=== PATIENT | male | born 1950 | race Caucasian/White ===

== ENCOUNTER 2022-11-09 11:04 | Inpatient (IN) | payer MEDICARE, MEDICAID ==
[~2022-11-09] VITALS: Ht 167.6 cm; Wt 84.3 kg
[~2022-11-09 11:04] MED LIST: AMLO5TAB66 PO; ASPIRIN 81 MG CHEWABLE TABLET ONE; ATOR40TA71 PO; DIAZEPAM 5 MG TABLET ONE; DiphenhydrAMINE HCL 50 MG CAPSULE ONE; FAMO40TA7 PO; LISI10TA24 PO; MEMA5TAB42 PO; METF-1211 PO; SODIUM CHLORIDE 0.9% 1,000 ML IV ONE; SODIUM CHLORIDE 0.9% 1,000 ML ONE
[2022-11-09 11:59] LABS: PROTHROMBIN TIME 11.1 SEC (9.4-11.6)
[2022-11-09] MEDS ORDERED: SODIUM CHLORIDE 0.9% 1,000 ML IV ONE (12:00)
[2022-11-09] MEDS ORDERED: DiphenhydrAMINE HCL 50 MG CAPSULE PO ONE (12:00)
[2022-11-09] MEDS ORDERED: DIAZEPAM 5 MG TABLET PO ONE (12:00)
[2022-11-09] MEDS ORDERED: ASPIRIN 81 MG CHEWABLE TABLET PO ONE ×2 (12:00→15:45)
[2022-11-09 12:01] LABS: GLUCOMETER DEV NAME(LOC) SDS.; GLUCOSE,POINT OF CARE 98 MG/DL (70-110)
[2022-11-09] MEDS ORDERED: LIDOCAINE/PF 1% 30 ML VIAL ONE (14:03)
[2022-11-09] MEDS ORDERED: SODIUM BICARBONATE 50 MEQ/50 ML VIAL ONE (14:03)
[2022-11-09] MEDS ORDERED: IOHEXOL 300 MG/ML 100 ML VIAL ONE ×3 (14:03→15:28)
[2022-11-09 14:04] VITALS: BP 171/79
[2022-11-09] MEDS ORDERED: HEPARIN SODIUM 1000 UNITS/NS 1,000 ML ONE (14:04)
[2022-11-09] MEDS ORDERED: FentaNYL CITRATE PF 100 MCG/2 ML VIAL ONE (14:11)
[2022-11-09] MEDS ORDERED: MIDAZOLAM HCL 2 MG/2 ML VIAL ONE (14:12)
[2022-11-09] MEDS ORDERED: HEPARIN SODIUM 1000 UNITS/NS 0 ML ONE (14:40)
[2022-11-09] MEDS ORDERED: FentaNYL CITRATE PF 100 MCG/2 ML VIAL IVP ONE (14:45)
[2022-11-09] MEDS ORDERED: SODIUM CHLORIDE 0.9% 500 ML IV ONE (14:45)
[2022-11-09] MEDS ORDERED: LIDOCAINE 1% 30 ML/SOD BICARB 8.4% 4 ML SQ ONE (14:45)
[2022-11-09] MEDS ORDERED: HEPARIN SODIUM 1000 UNITS/NS 1,000 ML IARTER ONE (14:45)
[2022-11-09] MEDS ORDERED: MIDAZOLAM HCL 2 MG/2 ML VIAL IVP ONE (14:45)
[2022-11-09] MEDS ORDERED: IOHEXOL 300 MG/ML 100 ML VIAL ICOR ONE ×2 (14:45→15:45)
[2022-11-09] MEDS ORDERED: HEPARIN SODIUM,PORCINE 1,000 UNITS/ML 10 ML VIAL ONE (15:01)
[2022-11-09] MEDS ORDERED: HEPARIN SODIUM,PORCINE 1,000 UNITS/ML 10 ML VIAL IARTER ONE (15:15)
[2022-11-09] MEDS ORDERED: TICAGRELOR 90 MG TABLET PO ONE (15:45)
[2022-11-09 15:46] VITALS: BP 171/79
[2022-11-09] MEDS ORDERED: ONDANSETRON HCL 4 MG/2 ML VIAL IVP PRN (16:15)
[2022-11-09] MEDS ORDERED: INSULIN LISPRO 100 UNITS/ML SQ PRN (16:15)
[2022-11-09] MEDS ORDERED: OxyCODONE HCL/ACETAMINOPHEN 5-325 MG TABLET PO PRN (16:15)
[2022-11-09] MEDS ORDERED: DEXTROSE 50%-WATER 25 GM/50 ML SYRINGE IVP PRN (16:15)
[2022-11-09] MEDS ORDERED: ACETAMINOPHEN 325 MG TABLET PO PRN (16:15)
[2022-11-09 19:45] VITALS: BP 131/70
[2022-11-09 20:04] VITALS: BP 131/70
[2022-11-09] MEDS ORDERED: TICAGRELOR 90 MG TABLET PO SCH (21:00)
[2022-11-09] MEDS ORDERED: ATORVASTATIN CALCIUM 40 MG TABLET PO SCH (21:00)
[2022-11-09] MEDS: CARVEDILOL 6.25 MG TABLET PO SCH (22:21)
[2022-11-09] MEDS: DOCUSATE SODIUM 100 MG CAPSULE PO SCH (22:21)
[2022-11-10 00:02] VITALS: BP 125/69
[2022-11-10 04:55] VITALS: BP 124/70
[2022-11-10 06:05] LABS: ALANINE AMINOTRANSFERASE 26 U/L (12-78); ALBUMIN 3.4 g/dL (3.4-5.0); ALKALINE PHOSPHATASE 78 U/L (46-116); ANION GAP 6 mmol/L (8-16); ASPARTATE AMINOTRANSFERASE 24 U/L (15-37); BILIRUBIN,TOTAL 0.9 mg/dL (0.1-1.0); CARBON DIOXIDE 28 mmol/L (22-29); CHLORIDE 103 mmol/L (98-107); CREATININE 0.76 mg/dL (0.60-1.30); GLUCOSE,RANDOM 115 mg/dL (70-110); POTASSIUM 4.1 mmol/L (3.5-5.1); SODIUM SERUM 137 mmol/L (136-145); TOTAL PROTEIN, SERUM 7.3 g/dL (6.4-8.2); UREA NITROGEN, BLOOD 14 mg/dL (7-18)
[2022-11-10 06:08] LABS: GLOMERULAR FILTR. RATE CALC > 60 mL/min (>60)
[2022-11-10 06:49] LABS: BASOPHILS % (AUTO) 0.4 % (0.0-2.0); HEMATOCRIT 36.9 % (41-53); HEMOGLOBIN 12.9 g/dL (13.5-17.5); LYMPHOCYTES # (AUTO) 1.6 K/uL (1.0-4.8); LYMPHOCYTES % (AUTO) 23.4 % (22.0-44.0); MEAN CORPUSCULAR HEMOGLOBIN 32.8 pg (26.0-34.0); MEAN CORPUSCULAR HGB CONC 34.9 G/dL (31.0-37.0); MEAN CORPUSCULAR VOLUME 94 fL (80-100); MONOCYTES # (AUTO) 0.4 K/uL (0.1-1.0); MONOCYTES % (AUTO) 6.3 % (2.0-9.0); NEUTROPHILS # (AUTO) 4.5 K/uL (1.8-7.7); NEUTROPHILS % (AUTO) 66.9 % (40.0-70.0); PLATELET COUNT (AUTO) 215 K/uL (150-450); RED BLOOD CELL COUNT(AUTO) 3.94 MIL/uL (4.50-5.90); RED CELL DISTRIBUTION WIDTH 13.8 % (11.5-14.5)
[2022-11-10 07:38] VITALS: BP 135/70
[2022-11-10 08:22] LABS: GLUCOMETER DEV NAME(LOC) 5S.1B; GLUCOSE,POINT OF CARE 105 MG/DL (70-110)
[2022-11-10] MEDS ORDERED: FAMOTIDINE 20 MG TABLET PO SCH (09:00)
[2022-11-10] MEDS ORDERED: ASPIRIN 81 MG CHEWABLE TABLET PO SCH (09:00)
[2022-11-10] MEDS ORDERED: TICAGRELOR 90 MG TABLET PO SCH (09:00)
[2022-11-10] MEDS: CARVEDILOL 6.25 MG TABLET PO SCH (09:25)
[2022-11-10] MEDS: DOCUSATE SODIUM 100 MG CAPSULE PO SCH (09:26)
[2022-11-10 12:36] LABS: GLUCOMETER DEV NAME(LOC) 5S.1B; GLUCOSE,POINT OF CARE 133 MG/DL (70-110)
[2022-11-10 12:46] VITALS: BP 117/68
[2022-11-10] MEDS ORDERED: TICA90TA PO ×2 (13:54→13:56)
[2022-11-10] MEDS ORDERED: CARV6 PO (13:54)
[2022-11-10] MEDS ORDERED: ASPI-1444 PO ×2 (13:55→13:57)
[2022-11-10] MEDS ORDERED: CARV3 PO (13:56)
== END 2022-11-10 14:30 | disposition home or self-care (01) | DRG 247 ==
LOC: CATHLAB 11:04 → 5S 11:05
PROVIDERS: ADMIT Internal Medicine; ATTEND Internal Medicine
PROC: 027035Z Dilation of Coronary Artery, One Artery with Two Drug-eluting Intraluminal Devices, Percutaneous Approach (ICD-10-PCS; principal; 2022-11-09)
PROC: 4A023N7 Measurement of Cardiac Sampling and Pressure, Left Heart, Percutaneous Approach (ICD-10-PCS; 2022-11-09)
PROC: B2111ZZ Fluoroscopy of Multiple Coronary Arteries using Low Osmolar Contrast (ICD-10-PCS; 2022-11-09)
PROC: B2151ZZ Fluoroscopy of Left Heart using Low Osmolar Contrast (ICD-10-PCS; 2022-11-09)
PROC: B240ZZ3 Ultrasonography of Single Coronary Artery, Intravascular (ICD-10-PCS; 2022-11-09)
PROC: B41F1ZZ Fluoroscopy of Right Lower Extremity Arteries using Low Osmolar Contrast (ICD-10-PCS; 2022-11-09)
DX: I25.110 Atherosclerotic heart disease of native coronary artery with unstable angina pectoris (principal); E11.9 Type 2 diabetes mellitus without complications; E66.9 Obesity, unspecified; E78.00 Pure hypercholesterolemia, unspecified; I11.9 Hypertensive heart disease without heart failure; F03.90 Unspecified dementia, unspecified severity, without behavioral disturbance, psychotic disturbance, mood disturbance, and anxiety; Z95.5 Presence of coronary angioplasty implant and graft; Z68.30 Body mass index [BMI] 30.0-30.9, adult; Z90.49 Acquired absence of other specified parts of digestive tract; Z79.899 Other long term (current) drug therapy
CPT/HCPCS: 75960; 80053; 82962; 84484; 85025; 85610; 85730; 92920; 92928; 93005; J1644; J2250; J3010; J3490; J7030; Q9967; 36415-L1; 36415-TC